=== PATIENT | male | born 1975 | race Caucasian/White ===

== ENCOUNTER 2017-02-11 18:10 | Emergency (ER) | payer MEDICAID ==
[~2017-02-11] VITALS: Ht 167.6 cm; Wt 72.6 kg
[2017-02-11 18:49] VITALS: Ht 167.6 cm; Wt 72.6 kg
[2017-02-11 21:01] VITALS: BP 164/102
== END 2017-02-11 23:48 | disposition left against medical advice (07) ==
LOC: ED 18:10
DX: Z53.21 Procedure and treatment not carried out due to patient leaving prior to being seen by health care provider (principal)

== ENCOUNTER 2019-01-21 16:25 | Emergency (ER) | payer SELFPAY ==
[~2019-01-21] VITALS: Ht 167.6 cm; Wt 78.9 kg
[2019-01-21 16:34] VITALS: Ht 167.6 cm; Wt 78.9 kg
[2019-01-21 18:20] VITALS: BP 134/75
== END 2019-01-21 18:20 | disposition home or self-care (01) ==
LOC: ED 16:25
DX: S61.511A Laceration without foreign body of right wrist, initial encounter (principal); W45.8XXA Other foreign body or object entering through skin, initial encounter; Y93.89 Activity, other specified; Y92.89 Other specified places as the place of occurrence of the external cause; Y99.8 Other external cause status
CPT/HCPCS: 90715; J2001

== ENCOUNTER 2019-02-02 22:44 | Emergency (ER) | payer SELFPAY ==
[~2019-02-02] VITALS: Ht 165.1 cm; Wt 81.6 kg
[2019-02-02 23:24] VITALS: BP 151/98; Ht 165.1 cm; Wt 81.6 kg
== END 2019-02-03 00:50 | disposition home or self-care (01) ==
LOC: ED 22:44
DX: L08.89 Other specified local infections of the skin and subcutaneous tissue (principal); Z48.01 Encounter for change or removal of surgical wound dressing
CPT/HCPCS: J0696